=== PATIENT | male | born 1985 | race Caucasian/White ===

== ENCOUNTER 2018-06-12 22:25 | Emergency (ER) | payer SELFPAY | END 2018-06-13 05:30 | disposition home or self-care (01) | LOC: E/R 22:25 | DX: T50.7X1A Poisoning by analeptics and opioid receptor antagonists, accidental (unintentional), initial encounter (principal); R40.2142 Coma scale, eyes open, spontaneous, at arrival to emergency department; R40.2352 Coma scale, best motor response, localizes pain, at arrival to emergency department | CPT/HCPCS: 99283 ==